=== PATIENT | male | born 1950 | race Caucasian/White ===

== ENCOUNTER → 2017-01-30 | Outpatient (CLI) | payer BC, MEDICARE | END | disposition home or self-care (01) | LOC: CDC 15:19 | DX: I44.0 Atrioventricular block, first degree (principal) | CPT/HCPCS: 93000 ==

== ENCOUNTER 2017-02-23 16:21 | Emergency (ER) | payer BC, OTHER ==
[~2017-02-23] VITALS: Ht 177.8 cm; Wt 77.2 kg
[2017-02-23 17:41] LABS: COLOR RED ((YELLOW))
[2017-02-23 17:42] LABS: ADD MIUA? YES; BILIRUBIN NEGATIVE; BLOOD LARGE; GLUCOSE (STRIP) NEGATIVE; KETONES NEGATIVE; LEUKOCYTES SMALL; NITRITE NEGATIVE; PH, URINE 7.5 (5-8); PROTEIN (STRIP) 300; UROBILINOGEN 0.2 MG/DL (0.2-1.0)
[2017-02-23 17:43] LABS: BACTERIA 1+ /HPF; EPITHELIAL CELLS NONE SEEN /HPF; MUCUS NONE SEEN /LPF; RED BLOOD CELLS TNTC /HPF (0-5); UCUL ADDED? NO; WHITE BLOOD CELLS 0-5 /HPF (0-5)
[2017-02-23 18:01] LABS: HEMATOCRIT 38.4 % (38.0-50.0); MCH 31.7 PG (29.0-34.0); MCHC 34.6 G/DL (30.0-36.0); MCV 91.6 FL (86-99); MEAN PLAT.VOLUME 9.2 uM^3 (9.0-12.4); PLATELET COUNT 304 K/uL (156-360); RBC DIS.WIDTH-CV 12.4 % (11.8-14.6); RBC DIS.WIDTH-SD 41.5 % (39-53); RED BLOOD COUNT 4.19 M/uL (4.00-5.50); WHITE BLOOD COUNT 6.2 K/uL (4.1-10.2)
[2017-02-23 18:24] LABS: CHLORIDE 101 mEq/L (99-109); POTASSIUM 4.5 mEq/L (3.7-5.4); SODIUM 134 mEq/L (136-147)
[2017-02-23 18:25] LABS: GLUCOSE 93 mg/dL (70-99)
[2017-02-23 18:27] LABS: ANION GAP 7 MEQ/L (2-14)
[2017-02-23 18:29] LABS: GFR ESTIMATE (CALCULATED) > 59 mL/min/
[2017-02-23 18:30] LABS: UREA NITROGEN (BUN) 7 mg/dL (9-23)
[2017-02-23] MEDS ORDERED: LEVAQUIN750 MG PO (19:10)
[2017-02-23] MEDS ORDERED: NORCO 5/3251 TABLET PO (19:10)
[2017-02-23 19:29] VITALS: BP 137/74
== END 2017-02-23 19:30 | disposition home or self-care (01) ==
LOC: EME 16:21
PROVIDERS: Physician Assistant
PROC: 0T9B70Z Drainage of Bladder with Drainage Device, Via Natural or Artificial Opening (ICD-10-PCS; principal; 2017-02-23)
DX: R33.9 Retention of urine, unspecified (principal); R31.9 Hematuria, unspecified; R82.71 Bacteriuria; Z98.890 Other specified postprocedural states; Z88.2 Allergy status to sulfonamides; F17.200 Nicotine dependence, unspecified, uncomplicated
CPT/HCPCS: 80048; 81003; 85027; 87086; 99281; 99284